=== PATIENT | male | born 1930 | race Caucasian/White ===

== ENCOUNTER 2016-05-29 15:52 | Emergency (ER) ==
--- NOTE | 2016-05-29 16:25 | PROVIDER DOCUMENTATION ---
HPI-General Adult - General Source: patient - History of Present Illness -Gen Adult Nature of Presenting Problems: pt is a 85 y/o M present to the ER with a facial injury to the left side. pt states he lost his balance and hit the gorund as he was trying to look at some puppies. he denies neck pain; pt able to turn head from side to side. he states this happened just 30 mins prior to coming to the ER. Denies lost of consciousness. pt states he does not take any blood thinner mediations. 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 Location of Pain/Injury: reports: face (Left side) Pain Radiation: reports: no radiation Quality of Pain: reports: aching Severity: reports: severe Onset/Duration: reports: just prior to arrival Timing: reports: still present Context/Activities at Onset: reports: other (pt was bending to look at puppies.) Associated Symptoms: reports: denies symptoms Similar Symptoms Previously?: No Recently seen or treated by another doctor?: No <Lizette Condon - Last Filed: 05/29/16 17:09> <Lino Bustamante - Last Filed: 05/29/16 17:42> - General Chief Complaint: Facial Injury Stated Complaint: FALL/FACIAL INJURY Time Seen by Provider: 05/29/16 16:19 Allergies/Adverse Reactions: Patient Allergies Allergy/AdvReac Type Severity Reaction Status Date / Time No Known Allergies Allergy Verified 12/03/14 08:36 Home Medications: Home Medication List Medication Instructions Recorded Confirmed Last Taken Type Amiodarone [Cordarone] 400 mg PO TID #20 tablet 12/06/14 Unknown Rx Cephalexin [Keflex] 500 mg PO 4XDAY #20 capsule 05/29/16 Unknown Rx Review of Systems - Adult - REVIEW OF SYSTEMS - ADULT Constitutional: denies: chills, fever, fatique Eyes: reports: no symptoms reported Ears, Nose, Mouth & Throat: denies: ear discharge, ear pain, hearing loss Cardiovascular: reports: no symptoms reported Respiratory: reports: no symptoms reported Gastrointestinal: reports: no symptoms reported Genitourinary: reports: no symptoms reported Musculoskeletal: reports: no symptoms reported Integumentary: reports: other (Bruises and redness to the face.). denies: hives , itching, skin thickening Neurological: reports: loss of balance. denies: ataxia, dizziness/vertigo, headache/migraines, numbness Psychiatric: reports: no symptoms reported Endocrine: reports: no symptoms reported Hematologic/Lymphatic: reports: no symptoms reported Allergic/Immunologic: reports: no symptoms reported All Other Systems: Reviewed and Negative <Lizette Condon - Last Filed: 05/29/16 17:09> Past History - Adult - PAST MEDICAL HISTORY-ADULT Review of Records: reports: Nursing Assessment Review Major Childhood Illnesses: reports: denies history Cardiovascular: reports: A-Fib Respiratory: reports: denies history Gastrointestinal: reports: denies history Genitourinary: reports: other (under treatment for uti) Neurological: reports: other ([id number]) - PRIOR SURGERIES/PROCEDURES Surgical/Procedure History: reports: other (left eye prosthesis ) - IMMUNIZATION STATUS Childhood Immunizations: See Nurse Assessment Flu Vaccine: See Nurse Assessment - SOCIAL HISTORY Smoking: other (former smoker ) Substance Use: none/never Alcohol Use Frequency: never <Lizette Condon - Last Filed: 05/29/16 17:09> Physical Exam-General - PHYSICAL EXAM-ADULT Initial Vital Signs Reviewed: Yes - CONSTITUTIONAL General Appearance: appears well, alert, no apparent distress, mild distress - EYES Eyes: PERRL/EOMI, pink conjunctivae - HEAD, EARS, NOSE, MOUTH & THROAT HENMT: moist mucous membranes, normal ENT inspection - NECK Neck: non-tender, full range of motion - RESPIRATORY Respiratory: chest non-tender, lungs clear, normal breath sounds, no pleuratic chest pain, no respiratory distress, no accessory muscle use - CARDIOVASCULAR Cardiovascular: normal peripheral pulses, regular rate, rhythm, no edema, no gallop, no JVD, no murmur - GASTROINTESTINAL (ABDOMEN) Abdominal Exam: normal bowel sounds, non tender, soft - MUSCULOSKELETAL Extremity: normal range of motion, non-tender, normal gait, normal inspection - SKIN Integumentary: ecchymosis (Bruise to entire left side of face and left cheek and cheek bone), swelling - NEUROLOGIC Neurologic: grossly normal, no motor/sensory deficits - PSYCHIATRIC Psych/Mental Status: normal mood/affect, normal thought content, normal thought process, oriented x 3 <Lizette Condon - Last Filed: 05/29/16 17:09> Progress - PLAN OF CARE/RESULTS Progress/Plan/Lab Results: Orders Category Date Time Status FACIAL BONES W/O CONTRAST [CT] Stat Exams 05/29/16 16:19 Ordered EKG [EKG] Stat Ther 05/29/16 16:07 Ordered Vital Signs - 24 hr 05/29/16 15:58 Temperature 97.8 F Pulse Rate 60 Respiratory 20 Rate Blood Pressure 147/74 O2 Sat by Pulse 97 Oximetry - EKG 1 Time of EKG reading by physician:: 16:23 EKG Read and Signed by:: Lino Bustamante EKG Interpretation (*Must complete 3 of following elements*): Abnormal (Sinus bradycardia with 1st degree AV block, Right bundle branch block, abnormal ECG) Rate: 56 Rhythm: sinus bradycardia w/ 1st degree AV block [place]: normal QRS: normal OR Interval: normal ST Wave: normal - CT/MRI 1 CT Study: Facial Bones (w/o contrast) Impression: Normal (No fracture seen) <Lizette Condon - Last Filed: 05/29/16 17:09> Departure <Lizette Condon - Last Filed: 05/29/16 17:09> - Departure Time of Disposition Order: 17:38 Certified Medical Emergency: Emergent <Lino Bustamante - Last Filed: 05/29/16 17:42> - Departure DIAGNOSIS: Facial contusion Qualifiers: Encounter type: initial encounter Qualified Code(s): S00.83XA - Contusion of other part of head, initial encounter Disposition: HOME 01 Condition: Stable Additional Instructions: ED Follow Up Instructions: You have been treated by a care provider in the Emergency Department. These instructions are being provided to you so you can have an understanding of how to care for yourself upon discharge. Upon discharge from the Emergency Department, you are responsible for making arrangements for follow-up care by a physician of your choice. Take all prescribed medications as directed. Return to the Emergency Department immediately for any new or worsening symptoms. You may call the Physician Referral phone number at [phone] to obtain a list of Physicians who are taking new patients. Prescriptions: Cephalexin [Keflex] 500 mg PO 4XDAY #20 capsule Referrals: None,PCP [Primary Care Provider] - Attestation - Scribe Verification/Attestation Scribe:: Lizette Condon Acting as Scribe for:: Lino Bustamante Scribe documention review:: This chart was documented by a scribe and accurately reflects the service the provider performed and the decisions made by the provider. <Lizette Condon - Last Filed: 05/29/16 17:09> Physician Attestation
--- NOTE | 2016-05-29 17:18 | EKG Report ---
Test Performed on : 05/29/2016 4:18:06 PM Test Reason : dizzy Blood Pressure : / mmHG Vent. Rate : 055 BPM Atrial Rate : 357 BPM P-R Int : 000 ms QRS Dur : 132 ms QT Int : 486 ms P-R-T Axes : 000 003 025 degrees QTc Int : 464 ms Wide QRS rhythm. Right bundle branch block Abnormal ECG When compared with ECG of 05-DEC-2014 10:11, Wide QRS rhythm. has replaced Atrial flutter. Vent. rate has decreased BY 82 BPM Unconfirmed Result
--- NOTE | 2016-05-29 17:19 | Diag Imaging Result Document ---
PROCEDURE NAME: FACIAL BONES W/O CONTRAST - 05/29/2016 CT FACIAL BONES WITHOUT CONTRAST: FINDINGS: Axial and reformatted coronal and sagittal images are obtained. A dose reduction protocol was used. Compared with 12/03/2014. There is periorbital soft tissue swelling on the left. There is a prosthetic left globe. The globe of the right orbit appears grossly intact. There is no retrobulbar orbital hematoma identified. There is no fracture identified. There is no paranasal sinus fluid identified. There are degenerative changes noted at the right temporomandibular joint. IMPRESSION: No evidence of fracture.
[2016-05-29] MEDS ORDERED: BOOSTRIX VACCINE IM ONE (17:38)
[2016-05-29 18:02] VITALS: BP 144/77
== END 2016-05-29 18:14 | disposition home or self-care (01) ==
LOC: P.ED 15:52
DX: S00.83XA Contusion of other part of head, initial encounter (principal); W19.XXXA Unspecified fall, initial encounter; S09.93XA Unspecified injury of face, initial encounter; R26.81 Unsteadiness on feet; I48.91 Unspecified atrial fibrillation; Z87.891 Personal history of nicotine dependence; R94.31 Abnormal electrocardiogram [ECG] [EKG]; Z79.899 Other long term (current) drug therapy; Z23 Encounter for immunization
CPT/HCPCS: 70486; 90471; 90715; 93005